=== PATIENT | male | born 1995 | race Two or more races ===

== ENCOUNTER 2025-01-24 04:34 | Emergency (ER) | payer OTHER ==
[~2025-01-24] VITALS: Ht 180.3 cm; Wt 99.8 kg
[2025-01-24] MEDS ORDERED: KETOROLAC TROMETHAMINE 60 MG VIAL IM ONE ×2 (08:45→09:23)
== END 2025-01-24 10:39 | disposition home or self-care (01) ==
LOC: ER 04:34
DX: M54.2 Cervicalgia (principal); M25.571 Pain in right ankle and joints of right foot; V43.52XA Car driver injured in collision with other type car in traffic accident, initial encounter; Y93.89 Activity, other specified; Y92.413 State road as the place of occurrence of the external cause; Z88.8 Allergy status to other drugs, medicaments and biological substances; R07.89 Other chest pain